=== PATIENT | male | born 1980 | race American Indian/Alaskan Native ===

== ENCOUNTER 2021-11-19 09:54 | Emergency (ER) | payer SELFPAY ==
[2021-11-19] MEDS ORDERED: ALBUTEROL 2.5 MG/3 ML NEBU IH NR (10:52)
[2021-11-19] MEDS ORDERED: IPRATROPIUM 0.02% NEBU 2.5 ML IH NR (11:00)
[2021-11-19] MEDS ORDERED: dexAMETHasone 20 MG/5 ML VIAL IM NR (11:00)
--- NOTE | 2021-11-19 11:16 | XRay Report ---
XR chest routine 2V INDICATION / CLINICAL INFORMATION: cough, sob, wheezing. COMPARISON: None available. FINDINGS: SUPPORT DEVICES: None. HEART /PULMONARY VASCULATURE: No significant abnormality. LUNGS / PLEURA: No significant pulmonary or pleural abnormality. No pneumothorax. ADDITIONAL FINDINGS: No significant additional findings. IMPRESSION: 1. No acute findings. Signer Name: Nima Oliva MD Signed: 11/19/2021 11:12 AM Workstation Name: [id number]
--- NOTE | 2021-11-19 11:31 | Emergency Department Report ---
ED Asthma HPI - General Chief Complaint: Adult Asthma Stated Complaint: ASTHMA Time Seen by Provider: 11/19/21 10:42 Source: EMS Mode of arrival: Ambulatory Limitations: No Limitations - History of Present Illness Initial Comments: Patient is a 40-year-old male presents emergency room with an asthma exacerbation that began 3 days ago. He has associated wheezing, shortness of breath, chest tightness, cough. He reports he had a couple episodes of diarrhea and vomiting. He is fully vaccinated for COVID-19. He denies any known sick contacts or recent travel. Is a past medical history of asthma and has been out of his inhaler for quite some time. No allergies to medications. - Related Data Previous Rx's Medication Instructions Recorded Last Taken Type Albuterol Sulfate [Proventil Hfa] 1 puff IH TID PRN #1 hfa.aer.ad 11/19/21 Unknown Rx Benzonatate [Tessalon Perles] 100 mg PO Q8HR PRN #12 capsule 11/19/21 Unknown Rx Prednisone [predniSONE 10 mg 10 mg PO .TAPER #1 tab.ds.pk 11/19/21 Unknown Rx (6-Day Pack, 21 Tabs)] guaiFENesin ER [Mucinex ER] 600 mg PO Q12H #14 tablet.er 11/19/21 Unknown Rx Allergies Allergy/AdvReac Type Severity Reaction Status Date / Time No Known Allergies Allergy Verified 11/19/21 10:58 ED Review of Systems ROS: Stated complaint: ASTHMA Other details as noted in HPI Comment: All other systems reviewed and negative ED Past Medical Hx - Medications Home Medications: Home Medications Medication Instructions Recorded Confirmed Last Taken Type Albuterol Sulfate [Proventil Hfa] 1 puff IH TID PRN #1 hfa.aer.ad 11/19/21 Unknown Rx Benzonatate [Tessalon Perles] 100 mg PO Q8HR PRN #12 capsule 11/19/21 Unknown Rx Prednisone [predniSONE 10 mg 10 mg PO .TAPER #1 tab.ds.pk 11/19/21 Unknown Rx (6-Day Pack, 21 Tabs)] guaiFENesin ER [Mucinex ER] 600 mg PO Q12H #14 tablet.er 11/19/21 Unknown Rx ED Physical Exam - General Limitations: No Limitations General appearance: alert, in no apparent distress - Head Head exam: Present: atraumatic, normocephalic - Eye Eye exam: Present: normal appearance - ENT ENT exam: Present: mucous membranes moist - Respiratory Respiratory exam: Present: wheezes, decreased breath sounds, prolonged expiratory. Absent: respiratory distress, rales, rhonchi, stridor, chest wall tenderness, accessory muscle use - Cardiovascular Cardiovascular Exam: Present: regular rate, normal rhythm, normal heart sounds. Absent: systolic murmur, diastolic murmur, rubs, gallop - Neurological Exam Neurological exam: Present: alert, oriented X3 - Psychiatric Psychiatric exam: Present: normal affect, normal mood - Skin Skin exam: Present: warm, dry, intact ED Course Vital Signs 11/19/21 11/19/21 09:56 11:48 Temperature 98.7 F Pulse Rate 68 98 H Respiratory 18 18 Rate Blood Pressure 160/90 136/88 [Left] O2 Sat by Pulse 98 100 Oximetry ED Medical Decision Making - Lab Data Vital Signs 11/19/21 11/19/21 09:56 11:48 Temperature 98.7 F Pulse Rate 68 98 H Respiratory 18 18 Rate Blood Pressure 160/90 136/88 [Left] O2 Sat by Pulse 98 100 Oximetry - Radiology Data Radiology results: report reviewed Ordering Physician: DENICE BRADFORD Date of Service: 11/19/21 Procedure(s): XR chest routine 2V Accession Number(s): [id number] cc: DENICE BRADFORD Fluoro Time In Minutes: XR chest routine 2V INDICATION / CLINICAL INFORMATION: cough, sob, wheezing. COMPARISON: None available. FINDINGS: SUPPORT DEVICES: None. HEART /PULMONARY VASCULATURE: No significant abnormality. LUNGS / PLEURA: No significant pulmonary or pleural abnormality. No pneumothorax. ADDITIONAL FINDINGS: No significant additional findings. IMPRESSION: 1. No acute findings. Signer Name: Xavi Emerson MD Signed: 11/19/2021 11:12 AM Workstation Name: [id number] Transcribed By: JS Dictated By: XAVI EMERSON MD Electronically Authenticated By: XAVI EMERSON MD Signed Date/Time: 11/19/211111 DD/ 11 TD/TT: - Medical Decision Making Patient is a 40-year-old male presents emergency room with an asthma exacerbation that began 3 days ago. He has associated wheezing, shortness of breath, chest tightness, cough. He reports he had a couple episodes of diarrhea and vomiting. He is fully vaccinated for COVID-19. He denies any known sick contacts or recent travel. Is a past medical history of asthma and has been out of his inhaler for quite some time. No allergies to medications. Vitals are stable. On exam patient has wheezing bilaterally and prolonged expiratory phase, no accessory muscle use. X-ray chest 1. No acute findings. Patient given nebulizer treatment and steroids IM with some improvement of symptoms. Patient has no hypoxia. No clinical signs of bacterial pneumonia or bacterial bronchitis. Given refill for his inhaler. Advised patient Please take medication as prescribed. Increase your fluid intake. Follow-up with your primary care doctor. Return to emergency room for any new or worsening symptoms. Recommend outpatient COVID-19 testing and if positive will need to self quarantine for 10 days from onset of symptoms. Critical care attestation.: If time is entered above; I have spent that time in minutes in the direct care of this critically ill patient, excluding procedure time. ED Disposition Clinical Impression: Asthma Qualifiers: Asthma severity: unspecified severity Asthma persistence: unspecified Asthma complication type: with acute exacerbation Qualified Code(s): J45.901 - Unspecified asthma with (acute) exacerbation URI (upper respiratory infection) Qualifiers: URI type: unspecified URI Qualified Code(s): J06.9 - Acute upper respiratory infection, unspecified Disposition: 01 HOME / SELF CARE / HOMELESS Is pt being admited?: No Does the pt Need Aspirin: No Condition: Stable Instructions: Asthma, Adult, Asthma (ED) Additional Instructions: Please take medication as prescribed. Increase your fluid intake. Follow-up with your primary care doctor. Return to emergency room for any new or worsening symptoms. Recommend outpatient COVID-19 testing and if positive will need to self quarantine for 10 days from onset of symptoms. Prescriptions: guaiFENesin ER [Mucinex ER] 600 mg PO Q12H #14 tablet.er Prednisone [predniSONE 10 mg (6-Day Pack, 21 Tabs)] 10 mg PO .TAPER #1 tab.ds.pk Albuterol Sulfate [Proventil Hfa] 1 puff IH TID PRN #1 hfa.aer.ad PRN Reason: shortness of breath Benzonatate [Tessalon Perles] 100 mg PO Q8HR PRN #12 capsule PRN Reason: cough Referrals: PRIMARY CARE, [Primary Care Provider] - 3-5 Days Forms: Work/School Release Form(ED) Time of Disposition: 11:29 Print Language: MARSHALLESE
[2021-11-19 11:49] VITALS: BP 136/88
== END 2021-11-19 11:50 | disposition home or self-care (01) ==
LOC: ED 09:54
DX: J45.901 Unspecified asthma with (acute) exacerbation (principal); J06.9 Acute upper respiratory infection, unspecified; R19.7 Diarrhea, unspecified; R11.10 Vomiting, unspecified
CPT/HCPCS: 71046; 96372; 99283; J1100